=== PATIENT | female | born 1970 | race Caucasian/White ===

== ENCOUNTER 2017-07-06 08:50 | Observation (INO) | payer OTHER ==
[~2017-07-06] VITALS: Ht 162.6 cm; Wt 73.0 kg
[~2017-07-06 08:50] MED LIST: BUPROPION HCL300 MG PO; BUSPIRONE5 MG PO; CLONAZEPAM0.5 MG PO
--- NOTE | 2017-07-06 09:00 | NUR ---
W/C TO ER ROOM 10, TO BED
[2017-07-06 09:40] LABS: HEMATOCRIT 39.4 % (37.0-47.0); HEMOGLOBIN 13.2 g/dl (12.0-16.0); IMMATURE GRANULOCYTES 0.4 % (0.0-1.0); MEAN CELL VOLUME 92.1 fL CALC (80.0-100.0); MEAN CORPUSCULAR HGB 30.8 pG CALC (26.0-32.0); MEAN CORPUSCULAR HGB CONC 33.5 g/L CALC (32.0-36.0); NEUT# 7.69 thou/uL (2.00-7.15); RED BLOOD COUNT 4.28 mill/uL (4.20-5.60); RED CELL DISTRI WIDTH 11.9 % (11.5-15.5)
[2017-07-06 09:54] LABS: ANION GAP 17 (6-22 (CALC)); BUN 12 mg/dL (7-17); BUN/CREATININE RATIO 13 (12-20 (CALC)); CARBON DIOXIDE 26 mmol/l (22-30); CHLORIDE 106 mmol/l (95-108); CREATININE 0.9 mg/dL (0.5-1.0); GFR > 60 ML/MIN (>=60 (CALC)); GFR FOR AFR.AMER. > 60 ML/MIN (>=60 (CALC)); SODIUM 144 mmol/l (137-146)
--- NOTE | 2017-07-06 09:56 | NUR ---
PT RESTING QUIETLY ON STRETCHER.
--- NOTE | 2017-07-06 10:09 | NUR ---
ADVISED PT OF WAIT TIME FOR LAB RESULTS.
--- NOTE | 2017-07-06 10:47 | NUR ---
STEPHANIE spoke with regarding admission status. stated the patient is here with c/o niall pain and will be admitted Observation and CM voiced agreement.
--- NOTE | 2017-07-06 11:01 | NUR ---
PT AWARE OF PENDING ADMISSION, DENIES CHEST PAIN AT THIS TIME.
--- NOTE | 2017-07-06 12:30 | NUR ---
PT TRANSFERRED TO FLOOR VIA STRETCHER IN STABLE CONDITION ACCOMPANIED BY [facility];PT AMBULATED WITH A STEADY GAIT TO STANDING SCALE AND BEDSIDE;WT AND VS OBTAINED;PT REPORTS HAVING CP THAT RADIATED DOWN HER LEFT ARM STARTED AT 0100 ON 07/06/17;PT DENIES ANY PAIN AT THIS TIME AND IS ENCOURAGED ON REPORTING PAIN SCALE;ORIENTED TO ROOM AND CALL LIGHT SYSTEM;ASSESSMENT COMPLETED;RESPIRATIONS EVEN AND UNLABORED ON RA,CLEAR LUNG SOUNDS NOTED;ABDOMEN SOFT ON PALPATION AND ACTIVE IN ALL 4 QUADRANTS;STRONG PEDAL PULSES;TELE MONITOR IN PLACE;#20G TO RAC FLUSHED AND PATENT,SITE APPEARS HEALTHY;PT REPORTS LAST BM TO BE ON 07/06/17;PT REASSURED AND ALL QUESTIONS ANSWERED AT THIS TIME;SAFETY PRECAUTIONS REINFORCED;PT DENIES ANY OTHER NEEDS AND IS ENCOURAGED TO CALL FOR ASSISTANCE IF NEEDED;BED IN THE LOWEST POSITION WITH CALL LIGHT IN REACH;WILL CONTINUE TO MONITOR
[2017-07-06 12:34] VITALS: BP 119/60
--- NOTE | 2017-07-06 12:35 | NUR ---
PT TO ROOM 283 WITHOUT INCIDENT, REPORT WAS TO [place].
--- NOTE | 2017-07-06 16:10 | NUR ---
PT RESTING IN SEMI FOWLERS POSITION READING A BOOK;PT DENIES ANY CHEST PAIN OR DISCOMFORTS;TELE MONITOR IN PLACE;APPLE JUICE PROVIDED PER REQUEST;BED IN THE LOWEST POSITION WITH CALL LIGHT IN REACH;WILL CONTINUE TO MONITOR
[2017-07-06 16:24] VITALS: BP 111/55
[2017-07-06] MEDS ORDERED: BUSPIRONE15 MG PO (16:59)
[2017-07-06] MEDS ORDERED: CITALOPRAM20 MG PO (17:00)
[2017-07-06] MEDS ORDERED: RIZATRIPTAN BEN10 M1 PO (17:04)
[2017-07-06] MEDS ORDERED: TRIAZOLAM0.25 MG PO (17:04)
--- NOTE | 2017-07-06 17:05 | NUR ---
PT COMPLAINS OF HEAD AND LOWER BACK PAIN RATING 3/10 ON THE PAIN SCALE AND REQUESTS PAIN MEDICATION;PT MEDICATED WITH PRN TYLENOL 650MG PO;WILL MONITOR FOR EFFECTIVENESS
[2017-07-06 19:47] VITALS: BP 106/58
--- NOTE | 2017-07-06 20:20 | NUR ---
PT IN SEMIFOWLERS A/O X3, RESPIRATIONS EVEN AND UNLABORED ON RA, DENIES CHEST PAIN AT THIS TIME. TELE IN PLACE, MONITORED IN ER. ENCOURAGED TO USE CALL LIGHT FOR ASSISTANCE, WILL CONTINUE TO MONITOR.
--- NOTE | 2017-07-07 00:20 | NUR ---
TROPONIN DRAWN AT THIS TIME, TOLERATED WELL. DENIES CHEST PAIN.
[2017-07-07 00:22] VITALS: BP 98/53
[2017-07-07 05:02] VITALS: BP 88/41
--- NOTE | 2017-07-07 05:13 | NUR ---
OUT OF ROOM AMBULATING IN HALLWAY, IN NO APPARENT DISTRESS.
[2017-07-07 06:14] LABS: CHOLESTEROL HDL RATIO 4.2 (<4.4 (CALC))
--- NOTE | 2017-07-07 07:10 | NUR ---
REPORT RECEIVED FROM MELLY LINARES;INTRODUCED SELF TO PT AND POC DISCUSSED;PT DENIES ANY CHEST PAIN OR NEEDS;TELE MONITOR IN PLACE;PT ENCOURAGED TO EXPRESS CONCERNS;CALL LIGHT IN REACH;WILL CONTINUE TO MONITOR
--- NOTE | 2017-07-07 08:20 | NUR ---
PT RESTING AT BEDSIDE;A&O X3;VS OBTAINED AND ASSESSMENT COMPLETED;RESPIRATIONS EVEN AND UNLABORED ON RA,CLEAR LUNG SOUNDS;ABDOMEN SOFT;STRONG PEDAL PULSES;TELE MONITOR IN PLACE;PT VOICES NO COMPLAINTS OF CHEST PAIN OR DISCOMFORTS;#20G TO RAC FLUSHED AND PATENT,SITE APPEARS HEALTHY;PT ENCOURAGED TO EXPRESS CONCERNS;CALL LIGHT IN REACH;WILL CONTINUE TO MONITOR
[2017-07-07 08:23] VITALS: BP 103/57
--- NOTE | 2017-07-07 09:20 | NUR ---
PT COMPLAINS OF HEADACHE PAIN RATING 3/10 ON THE PAIN SCALE AND REQUESTS PAIN MEDICATION;PT MEDICATED WITH PRN TYLENOL 650MG PO;WILL MONITOR FOR EFFECT
[2017-07-07 11:12] VITALS: BP 102/54
--- NOTE | 2017-07-07 12:20 | NUR ---
PT RESTING IN SUPINE POSITION WATCHING TV;PT DENIES ANY PAIN;RESPIRATIONS EVEN AND UNLABORED ON RA;TELE MONITOR IN PLACE;IV SITE PATENT;PT ENCOURAGED TO CALL FOR ASSISTANCE IF NEEDED;WILL CONTINUE TO MONITOR
--- NOTE | 2017-07-07 14:10 | NUR ---
D/C DISCUSSED WITH PT AND ALL QUESTIONS ANSWERED;IV SITE REMOVED WITH CATHETER INTACT;PT DENIES ANY OTHER NEEDS AT THIS TIME;DENIES THE NEED FOR A WC
--- NOTE | 2017-07-07 14:15 | NUR ---
Discharge instructions given. Patient verbalizes understanding of same. Discharged in stable condition via Ambulatory to Home with spouse. All belongings sent with pt.
== END 2017-07-07 14:20 | disposition home or self-care (01) | DRG 313 ==
LOC: ED 08:50 → ED-I 10:33 → ED 11:09 → MS2 11:10
PROVIDERS: Family Medicine; ADMIT Internal Medicine; ATTEND Internal Medicine
DX: R07.89 Other chest pain (principal); E78.5 Hyperlipidemia, unspecified; F31.9 Bipolar disorder, unspecified; F41.9 Anxiety disorder, unspecified; Z87.891 Personal history of nicotine dependence
CPT/HCPCS: G0378